=== PATIENT | male | born 1955 | race Caucasian/White ===

== ENCOUNTER 2017-01-31 12:14 | Emergency (ER) | payer MEDICARE, SELFPAY ==
[~2017-01-31 12:14] MED LIST: DIOVAN160 MG PO; HUMULIN 70100 UNIT/1 SQ; HYDROCODON-ACE1 EAC2 PO; LASIX20 MG PO; NEURONTIN300 MG PO; NEXIUM40 MG PO; SYNTHROID50 MCG PO; VALIUM5 MG PO
== END 2017-01-31 12:50 | disposition home or self-care (01) ==
LOC: ER 12:14
DX: S67.190A Crushing injury of right index finger, initial encounter (principal); W23.0XXA Caught, crushed, jammed, or pinched between moving objects, initial encounter; Y92.009 Unspecified place in unspecified non-institutional (private) residence as the place of occurrence of the external cause; Z88.2 Allergy status to sulfonamides
CPT/HCPCS: 73130; 99283